=== PATIENT | male | born 1980 | race Caucasian/White ===

== ENCOUNTER → 2023-10-02 11:55 | Outpatient (BNVA) | payer OTHER, SELFPAY | PROVIDERS: PCP Physician Assistant; Visit Provider Emergency Medicine | DX: J02.9 Acute pharyngitis, unspecified (principal) | CPT/HCPCS: 87880 ==

== ENCOUNTER → 2023-12-21 13:44 | Outpatient (BNVA) | payer OTHER, SELFPAY | PROVIDERS: PCP Physician Assistant; Visit Provider Nurse Practitioner Family | DX: J02.9 Acute pharyngitis, unspecified (principal); R09.82 Postnasal drip; I10 Essential (primary) hypertension | CPT/HCPCS: 87880 ==

== ENCOUNTER 2024-02-02 08:43 | Outpatient (CLI) | payer OTHER, SELFPAY ==
--- NOTE | 2024-02-02 08:48 | CTR_ITS ---
PROCEDURE INFORMATION: Exam: CT Neck Without and With Contrast Exam date and time: 02/02/2024 9:01 AM Age: 43 years old Clinical indication: Patient HX: --lymphadenitis. Bilateral neck/ jaw swelling. Worse on the RT side. Bb placed where PT feels a knot. PT C/O pain with swallowing; Additional info: Lymphadenitis/smoker TECHNIQUE: Imaging protocol: Computed tomography of the neck without and with contrast. Radiation optimization: All CT scans at this facility use at least one of these dose optimization techniques: automated exposure control; mA and/or kV adjustment per patient size (includes targeted exams where dose is matched to clinical indication); or iterative reconstruction. Contrast material: OMNI 350; Contrast volume: 100 ml; Contrast route: INTRAVENOUS (IV); COMPARISON: No relevant prior studies available. RADIATION DOSE METRICS: Total DLP (mGy-cm): 515.01 FINDINGS: Brain: The visible portion of the brain is normal. Orbital cavities: There is bilateral proptosis. No visible intraorbital abnormality. Salivary glands: There is bilateral fat infiltration and mild enlargement of the parotid glands. There is no sign of parotid inflammation or ductal obstruction. No stones. The submandibular glands are normal. No sign of ductal obstruction. No stones. The BB markers are placed on the skin surface overlying both parotid glands. Pharynx: The nasopharynx is unremarkable. There is no significant pharyngeal tonsillar enlargement. The oropharynx is unremarkable. There is no significant palatine tonsillar enlargement. The hypopharynx is unremarkable. There is no significant lingual tonsillar enlargement. Prevertebral and retropharyngeal spaces: There is no fluid or edema in the retropharyngeal space. Larynx: The larynx and epiglottis are normal. Thyroid: The thyroid gland is unremarkable. Trachea: The visible portion of the trachea is normal. Lungs: Lung apices are clear. Lymph nodes: There is no cervical or supraclavicular lymphadenopathy. Bones/joints: No acute fracture. Mild diffuse cervical disc degeneration. Soft tissues: Neck musculature is symmetric. No soft tissue edema. CT/CT neck wo/w con [id number] IMPRESSION: 1. The skin markers correspond to the mildly enlarged bilateral parotid glands which demonstrate diffuse fat infiltration and no sign of inflammation or ductal obstruction. 2. Incidental findings above.
[2024-02-02] MEDS: iohexol 350 mg/mL 500 mL Btl (per mL) IV (09:13)
== END 2024-02-02 08:44 | disposition home or self-care (01) ==
LOC: RAD 08:44
PROVIDERS: PCP Physician Assistant; Visit Provider Nurse Practitioner Family
DX: I88.9 Nonspecific lymphadenitis, unspecified (principal); F17.200 Nicotine dependence, unspecified, uncomplicated; Z78.9 Other specified health status; H05.243 Constant exophthalmos, bilateral; E65 Localized adiposity
CPT/HCPCS: 70492

== ENCOUNTER 2024-04-08 17:20 | Emergency (ER) | payer OTHER, MEDICAID, SELFPAY ==
[2024-04-08 17:31] VITALS: BP 135/81; PULSE 91; RESP 18; TEMP 36.7; O2SAT 95
--- NOTE | 2024-04-08 17:42 | W.ED.PSYCHS ---
HPI - Psych General: Chief Complaint: Psychiatric Symptoms Stated Complaint: MHE Time Seen by Provider: 04/08/24 17:35 History of Present Illness: 43-year-old man with history of chronic right leg pain and methamphetamine use who presents to the emergency room with complaints of pain. Not sleeping. He does admit to using methamphetamine to try to control his pain. He says it helps with the pain initially and then the pain is worse because he cannot sleep. He has been having some issues with depression. He repeatedly denies any homicidal or suicidal ideation. His thinks he would benefit from inpatient psychiatric care, however I discussed with her that he does not really have any criteria for admission at this point. We did discuss the crisis center in the behavioral health clinic and they will try to go there. They said they were looking for that when they came to the emergency room. Related Data Home Medications Medication Instructions Recorded Confirmed aspirin 81 mg tablet,delayed 81 mg PO DAILY 04/26/21 12/21/23 release (Adult Aspirin Regimen) sertraline 50 mg tablet 50 mg PO DAILY 02/17/23 12/21/23 Previous Rx's Medication Instructions Recorded amoxicillin 875 mg-potassium 1 tab PO BID 10 days #20 tabs 10/10/23 clavulanate 125 mg tablet diclofenac sodium 50 mg 50 mg PO BID PRN pain #14 tabs 04/08/24 tablet,delayed release tramadol 50 mg tablet 50 mg PO Q8H PRN pain #20 tabs 04/08/24 Allergies Allergy/AdvReac Type Severity Reaction Status Date / Time trimethoprim [From Bactrim] Allergy ALGY-Rash Verified 12/21/23 13:31 milk AdvReac Intermediate diarrhea Verified 12/21/23 13:31 Review of Systems Narrative: Constitutional symptoms: Negative except as documented in HPI. Skin symptoms: Negative except as documented in HPI. Eye symptoms: Negative except as documented in HPI. ENMT symptoms: Negative except as documented in HPI. Respiratory symptoms: Negative except as documented in HPI. Cardiovascular symptoms: Negative except as documented in HPI. Gastrointestinal symptoms: Negative except as documented in HPI. Genitourinary symptoms: Negative except as documented in HPI. Musculoskeletal symptoms: Negative except as documented in HPI. Neurologic symptoms: Negative except as documented in HPI. Psychiatric symptoms: Negative except as documented in HPI. Endocrine symptoms: Negative except as documented in HPI. PFSH ED PFSH: Social History Smoking and tobacco/nicotine status: current every day tobacco/nicotine user Physical Exam Narrative: EXAM NARRATIVE: General: Alert, no acute distress. Skin: warm and dry Head: Normocephalic Neck: Trachea midline Eye: Extraocular movements are intact. Ears, nose, mouth and throat: Oral mucosa moist Respiratory: Respirations are non-labored Musculoskeletal: Normal ROM Neurological: Alert and oriented, No focal neurological deficit observed. Psychiatric: Cooperative, patient is a bit anxious and does appear like he has been doing some methamphetamine Course Vital Signs: Vital signs: Vital Signs Temperature 98.1 F 04/08/24 17:31 Pulse Rate 91 04/08/24 17:31 Respiratory Rate 18 04/08/24 17:31 Blood Pressure 135/81 04/08/24 17:31 Pulse Oximetry 95 04/08/24 17:31 Oxygen Delivery Me thod Room Air 04/08/24 17:31 MDM - Psych Medical Decision Making I discussed with the patient that we cannot do regular narcotics out of the emergency room for chronic pain and that he would have to follow with his primary Ortho pain doctor. I will give him a short course of Ultram. We also discussed follow-up with psychiatry. He repeatedly denies suicidal or homicidal ideation. Assessment and plan: Depression Chronic leg pain Methamphetamine use - Discharged home - Discussed plan with patient. Answered any questions. - Evaluation and treatment of this problem were appropriate in the emergency setting. No radiology studies performed this visit Discharge Plan Discharge Patient Disposition: Home Clinical Impression: Chronic leg pain, Depression, Methamphetamine use Condition: Stable Prescriptions: New tramadol 50 mg tablet 50 mg PO Q8H PRN (Reason: pain) Qty: 20 0RF diclofenac sodium 50 mg tablet,delayed release (DR/EC) 50 mg PO BID PRN (Reason: pain) Qty: 14 0RF No Action aspirin [Adult Aspirin Regimen] 81 mg tablet,delayed release (DR/EC) 81 mg PO DAILY sertraline 50 mg tablet 50 mg PO DAILY amoxicillin-pot clavulanate 875-125 mg tablet 1 tab PO BID 10 Days Qty: 20 0RF Discharge Orders: Discharge ED (Routine); Ordered 04/08/24 Ordered By: Cristal Toribio Referrals: Anupama Dimas PA-C [Primary Care Provider] - Discharge Activity: Increase activity as tolerated Patient Instructions: Opioid Safety, Pain Management Activity Restrictions/Additional Instructions: If you develop suicidal thoughts, or thoughts of harming yourself, or thoughts of harming others please seek medical attention immediately. Thank you for choosing [facility] for your healthcare needs today. Please realize this is an emergency room and that we are providing you with a medical screening exam and this may not be complete and all inclusive of all the testing and or work up that you may need to determine your ailment or severity of your illness. You have been screened and evaluated and felt safe for discharge. Health conditions do change or evolve sometimes and as such it is important that you follow up with your Primary Doctor to be re checked, 3-5 days is a general good time frame for follow up. You are always welcome to return to the ED for re assessment if your symptoms are worsening or you have new concerns Coding Level of Care Code ED Oliving Machine Operator for Dilip Akins
== END 2024-04-08 17:54 | disposition home or self-care (01) ==
PROVIDERS: Emergency Provider Emergency Medicine; PCP Physician Assistant
DX: M79.604 Pain in right leg (principal); F15.10 Other stimulant abuse, uncomplicated; F32.A Depression, unspecified; Z79.82 Long term (current) use of aspirin; Z72.0 Tobacco use
CPT/HCPCS: 99281